=== PATIENT | male | born 2000 | race Caucasian/White ===

== ENCOUNTER 2020-09-06 23:07 | Emergency (ER) | payer OTHER ==
[~2020-09-06] VITALS: Ht 177.8 cm; Wt 63.5 kg
[2020-09-07 00:23] VITALS: BP 129/80
== END 2020-09-07 00:25 | disposition home or self-care (01) ==
LOC: M.ERS 23:07
DX: S93.491A Sprain of other ligament of right ankle, initial encounter (principal); Z90.49 Acquired absence of other specified parts of digestive tract; X50.1XXA Overexertion from prolonged static or awkward postures, initial encounter; Y93.89 Activity, other specified; Y92.89 Other specified places as the place of occurrence of the external cause; Y99.8 Other external cause status